=== PATIENT | male | born 1950 | race Caucasian/White ===

== ENCOUNTER 2021-02-14 09:50 | Inpatient (IN) | payer MEDICARE, BC ==
[~2021-02-14] VITALS: Ht 188 cm; Wt 86.0 kg
[~2021-02-14 09:50] MED LIST: MESA400C3 PO
[2021-02-14 10:42] LABS: BASOPHILS % (AUTO) 0.4 % (0-1); EOSINOPHILS # (AUTO) 0.2 X10'3 (0-0.9); EOSINOPHILS % (AUTO) 2.2 % (0-6); HEMOGLOBIN 17.1 g/dl (14.0-17.9); LYMPHOCYTES # (AUTO) 1.9 X10'3 (1.1-4.8); LYMPHOCYTES % (AUTO) 18.1 % (21-51); MEAN CORPUSCULAR HEMOGLOBIN 31.4 PG (27.0-31.0); MEAN CORPUSCULAR HGB CONC 33.5 g/dL (33.0-36.5); MEAN CORPUSCULAR VOLUME 93.5 FL (78-98); MEAN PLATELET VOLUME 7.9 FL (7.4-10.4); MONOCYTES # (AUTO) 1.2 X10'3 (0-0.9); MONOCYTES % (AUTO) 11.6 % (2-12); NEUTROPHILS # (AUTO) 7.1 X10'3 (1.8-7.7); NEUTROPHILS % (AUTO) 67.7 % (42-75); PLATELET COUNT 293 X10'3 (140-440); RED BLOOD COUNT 5.46 X10'6 (4.70-6.10); RED CELL DISTRIBUTION WIDTH 13.7 % (11.5-14.5); WHITE BLOOD COUNT 10.5 X10'3 (4.5-11.0)
[2021-02-14 10:57] LABS: ALANINE AMINOTRANSFERASE 27 U/L (12-78); ALBUMIN 3.9 G/DL (3.4-5.0); ALBUMIN/GLOBULIN RATIO 0.9 (1.1-1.5); ALKALINE PHOSPHATASE 93 IU/L (46-116); ANION GAP 7 (8-16); ASPARTATE AMINO TRANSFERASE 18 U/L (10-37); BILIRUBIN,TOTAL 1.1 MG/DL (0.1-1.0); BLOOD UREA NITROGEN 15 MG/DL (7-18); BUN/CREATININE RATIO 11.8 (5.4-32.0); CALCIUM 9.6 MG/DL (8.5-10.1); CHLORIDE 99 MMOL/L (99-107); CREATININE 1.27 MG/DL (0.60-1.10); GLUCOSE 114 MG/DL (70-104); LIPASE 104 U/L (73-393); POTASSIUM 4.3 MMOL/L (3.5-5.1); SODIUM 137 MMOL/L (135-145); TOTAL CARBON DIOXIDE 31.5 MMOL/L (24-32); TOTAL PROTEIN 8.3 G/DL (6.4-8.2); eGFR 56 ML/MIN
[2021-02-14] MEDS ORDERED: iohexol 300mg/ml 100ml inj. ONE (11:20)
[2021-02-14 11:56] LABS: CLARITY,URINE CLEAR (Clear); COLOR,URINE STRAW (Yellow); GLUCOSE, URINE NEGATIVE (Neg); KETONES,URINE NEGATIVE (Neg); LEUKOCYTE ESTERASE ,URINE NEGATIVE (Neg); NITRITES, URINE NEGATIVE (Neg); OCCULT BLOOD,URINE NEGATIVE (Neg); PROTEIN,URINE NEGATIVE (Neg); UROBILINOGEN,URINE 0.2 E.U/dL (0.2-1.0)
[2021-02-14 11:57] LABS: UA COLLECTION TYPE CLN CATCH MIDSTREAM
[2021-02-14] MEDS ORDERED: LEVO50TA PO (13:17)
[2021-02-14] MEDS ORDERED: ATOR20TA66 PO (13:17)
[2021-02-14] MEDS ORDERED: magnesium 4gm in 100ml NS 100 ML IV PRN (13:45)
[2021-02-14] MEDS ORDERED: PEG 3350/Na sulf,bicarb,Cl/KCl oral sol 4 liter bottle PO ONE (13:45)
[2021-02-14] MEDS ORDERED: magnesium 2GM in 50ml NS 50 ML IV PRN (13:45)
[2021-02-14] MEDS ORDERED: potassium Cl 40MEQ/1/2NS 520ml 520 ML IV PRN ×2 (13:45)
[2021-02-14] MEDS ORDERED: acetaminophen 325mg tablet PO PRN (13:45)
[2021-02-14] MEDS ORDERED: potassium Cl 20 mEq SR tablet PO PRN ×2 (13:45)
[2021-02-14] MEDS ORDERED: magnesium Cl slow-release 64mg tablet PO PRN (13:45)
[2021-02-14] MEDS ORDERED: magnesium hydroxide 30ml (MOM) UD suspension PO PRN (13:45)
[2021-02-14] MEDS ORDERED: diphenhydrAMINE 25mg capsule PO PRN (13:45)
[2021-02-14 14:13] LABS: HEMOGLOBIN A1C 5.6 % (4.5-6.2)
--- NOTE | 2021-02-14 14:45 | NUR ---
PT TO GO TO GI LAB TOMORROW AFTER 1200, NEEDS TO START PRE AND CLEARS TODAY, ONLY PREP AFTER MIDNIGHT.
[2021-02-14] MEDS: normal saline 1000ml 1,000 ML IV SCH (16:44)
[2021-02-14] MEDS: docusate sod 100mg capsule PO SCH (20:00)
[2021-02-14] MEDS: K and/or MAG REPLACEMENT MC SCH (20:00)
[2021-02-14] MEDS: temazepam 15mg capsule PO SCH (21:15)
--- NOTE | 2021-02-14 23:18 | NUR ---
Patient in room ED 15. I have received report from DINAH Tatum and had the opportunity to ask questions and assume patient care.
[2021-02-14 23:53] VITALS: BP 136/81
[2021-02-15] VITALS (9 sets, daily range): BP systolic 111–132; BP diastolic 50–89
[2021-02-15] MEDS: normal saline 1000ml 1,000 ML IV SCH ×3 (02:01→15:49)
--- NOTE | 2021-02-15 06:11 | NUR ---
Problems reprioritized. Patient report given, questions answered & plan of care reviewed with DINAH Gonzalez.
--- NOTE | 2021-02-15 06:13 | NUR ---
Patient in room ORTHO 4024. I have received report from DINAH Vences and had the opportunity to ask questions and assume patient care.
[2021-02-15 06:17] LABS: BASOPHILS % (AUTO) 0.5 % (0-1); EOSINOPHILS # (AUTO) 0.3 X10'3 (0-0.9); HEMATOCRIT 47.8 % (42.0-52.0); HEMOGLOBIN 16.1 g/dl (14.0-17.9); LYMPHOCYTES # (AUTO) 1.6 X10'3 (1.1-4.8); LYMPHOCYTES % (AUTO) 16.3 % (21-51); MEAN CORPUSCULAR HEMOGLOBIN 31.6 PG (27.0-31.0); MEAN CORPUSCULAR HGB CONC 33.7 g/dL (33.0-36.5); MEAN CORPUSCULAR VOLUME 93.6 FL (78-98); MEAN PLATELET VOLUME 8.1 FL (7.4-10.4); MONOCYTES # (AUTO) 1.3 X10'3 (0-0.9); NEUTROPHILS # (AUTO) 6.4 X10'3 (1.8-7.7); NEUTROPHILS % (AUTO) 66.2 % (42-75); PLATELET COUNT 265 X10'3 (140-440); RED CELL DISTRIBUTION WIDTH 13.6 % (11.5-14.5); WHITE BLOOD COUNT 9.6 X10'3 (4.5-11.0)
--- NOTE | 2021-02-15 06:42 | NUR ---
Problems reprioritized. Patient report given to DINAH Noguera questions answered & plan of care reviewed with .
[2021-02-15 06:48] LABS: ALANINE AMINOTRANSFERASE 23 U/L (12-78); ALBUMIN 3.6 G/DL (3.4-5.0); ALBUMIN/GLOBULIN RATIO 0.9 (1.1-1.5); ALKALINE PHOSPHATASE 93 IU/L (46-116); ANION GAP 10 (8-16); ASPARTATE AMINO TRANSFERASE 20 U/L (10-37); BILIRUBIN,TOTAL 1.1 MG/DL (0.1-1.0); BLOOD UREA NITROGEN 16 MG/DL (7-18); CALCIUM 8.6 MG/DL (8.5-10.1); CHLORIDE 104 MMOL/L (99-107); CHOL/HDL RATIO 1.7 (0.00-4.99); CHOLESTEROL 151 MG/DL (0-200); CREATININE 1.14 MG/DL (0.60-1.10); GLUCOSE 103 MG/DL (70-104); HDL CHOLESTEROL 89 MG/DL (35-60); LDL CHOLESTEROL 40 MG/DL (50-100); MAGNESIUM 1.8 MG/DL (1.5-2.4); PHOSPHORUS 3.2 MG/DL (2.3-4.5); POTASSIUM 4.1 MMOL/L (3.5-5.1); SODIUM 139 MMOL/L (135-145); TOTAL CARBON DIOXIDE 25.5 MMOL/L (24-32); TOTAL PROTEIN 7.4 G/DL (6.4-8.2); TRIGLYCERIDES 62 MG/DL (20-135); eGFR 64 ML/MIN
[2021-02-15] MEDS: K and/or MAG REPLACEMENT MC SCH ×2 (08:00→19:49)
[2021-02-15] MEDS: docusate sod 100mg capsule PO SCH ×2 (08:00→19:55)
[2021-02-15] MEDS: atorvastatin 20mg tablet PO SCH (08:26)
[2021-02-15] MEDS: levoTHYROXINE 25mcg tablet PO SCH (08:26)
[2021-02-15] MEDS ORDERED: MIDAZolam 1 MG/ML 5ML VIAL ONE (12:05)
[2021-02-15] MEDS ORDERED: fentaNYL/PF 50MCG/1 ML 2ML syringe ONE (12:05)
[2021-02-15] MEDS ORDERED: GADOTERATE MEGLUMINE 7.5 MMOL/15 ML VIAL IV ONE (13:39)
--- NOTE | 2021-02-15 14:40 | NUR ---
PAGER ID: [phone] MESSAGE: german russell [phone] re: Colby Culver [id number]. Pts colonoscopy and MRI results are in. May pt eat? Thank you.
--- NOTE | 2021-02-15 18:23 | NUR ---
Problems reprioritized. Patient report given, questions answered & plan of care reviewed with remington russell.
--- NOTE | 2021-02-15 18:38 | NUR ---
Patient in room ORTHO 4024. I have received report from DINAH Noguera and had the opportunity to ask questions and assume patient care.
[2021-02-15] MEDS: temazepam 15mg capsule PO SCH (21:23)
[2021-02-16] MEDS: normal saline 1000ml 1,000 ML IV SCH ×2 (02:02→15:56)
[2021-02-16] MEDS: mag hydrox/Alum hydrox/simeth 30ml oral suspension PO PRN ×2 (04:41→09:45)
[2021-02-16] MEDS: HYDROmorphone inj. 0.5 MG/0.5 ML DISP.SYRIN IV PRN ×4 (04:53→20:40)
[2021-02-16 05:53] LABS: BASOPHILS % (AUTO) 0.5 % (0-1); EOSINOPHILS # (AUTO) 0.2 X10'3 (0-0.9); EOSINOPHILS % (AUTO) 2.7 % (0-6); HEMATOCRIT 45.1 % (42.0-52.0); HEMOGLOBIN 15.2 g/dl (14.0-17.9); LYMPHOCYTES # (AUTO) 1.2 X10'3 (1.1-4.8); LYMPHOCYTES % (AUTO) 14.1 % (21-51); MEAN CORPUSCULAR HEMOGLOBIN 31.4 PG (27.0-31.0); MEAN CORPUSCULAR HGB CONC 33.8 g/dL (33.0-36.5); MEAN CORPUSCULAR VOLUME 92.8 FL (78-98); MEAN PLATELET VOLUME 8.3 FL (7.4-10.4); MONOCYTES # (AUTO) 1.2 X10'3 (0-0.9); MONOCYTES % (AUTO) 14.3 % (2-12); NEUTROPHILS % (AUTO) 68.4 % (42-75); PLATELET COUNT 263 X10'3 (140-440); RED BLOOD COUNT 4.86 X10'6 (4.70-6.10); RED CELL DISTRIBUTION WIDTH 13.4 % (11.5-14.5); WHITE BLOOD COUNT 8.7 X10'3 (4.5-11.0)
[2021-02-16 06:00] VITALS: BP 122/72
[2021-02-16 06:21] LABS: ALANINE AMINOTRANSFERASE 19 U/L (12-78); ALBUMIN 3.3 G/DL (3.4-5.0); ALBUMIN/GLOBULIN RATIO 0.9 (1.1-1.5); ALKALINE PHOSPHATASE 88 IU/L (46-116); ANION GAP 10 (8-16); ASPARTATE AMINO TRANSFERASE 19 U/L (10-37); BLOOD UREA NITROGEN 16 MG/DL (7-18); BUN/CREATININE RATIO 15.7 (5.4-32.0); CALCIUM 8.5 MG/DL (8.5-10.1); CHLORIDE 103 MMOL/L (99-107); CREATININE 1.02 MG/DL (0.60-1.10); GLUCOSE 110 MG/DL (70-104); MAGNESIUM 1.9 MG/DL (1.5-2.4); PHOSPHORUS 2.6 MG/DL (2.3-4.5); POTASSIUM 3.6 MMOL/L (3.5-5.1); SODIUM 138 MMOL/L (135-145); eGFR 72 ML/MIN
--- NOTE | 2021-02-16 06:45 | NUR ---
Problems reprioritized. Patient report given, questions answered & plan of care reviewed with DINAH Gutierrez.
[2021-02-16] MEDS: levoTHYROXINE 25mcg tablet PO SCH (07:59)
[2021-02-16] MEDS: atorvastatin 20mg tablet PO SCH (07:59)
[2021-02-16] MEDS: K and/or MAG REPLACEMENT MC SCH ×2 (08:00→20:00)
[2021-02-16] MEDS: docusate sod 100mg capsule PO SCH ×2 (08:00→20:38)
[2021-02-16] MEDS: ondansetron/PF 4mg/2ml inj IV PRN (09:53)
[2021-02-16 10:00] VITALS: BP 126/66
[2021-02-16] MEDS ORDERED: iohexol 300mg/ml 100ml inj. ONE (10:09)
[2021-02-16] MEDS: pantoprazole 40 MG vial IV SCH (13:16)
[2021-02-16 18:00] VITALS: BP 114/72
--- NOTE | 2021-02-16 18:30 | NUR ---
Patient in room ORTHO 4024. I have received report from Brenda NIX and had the opportunity to ask questions and assume patient care.
[2021-02-16] MEDS: heparin, porcine 5000 units/ml vial SQ SCH (20:00)
[2021-02-16] MEDS: temazepam 15mg capsule PO SCH (21:00)
--- NOTE | 2021-02-16 21:00 | NUR ---
I have not seen him void yet but he verbalized that he is peeing and I asked him to use the urinal for accurate measurement. Addendum: 02/17/21 at 0344 by Jaylin Salazar RN Amended: Links added.
[2021-02-16 22:00] VITALS: BP 111/66
[2021-02-17] MEDS: normal saline 1000ml 1,000 ML IV SCH ×3 (02:58→20:28)
[2021-02-17 06:13] VITALS: BP 123/62
--- NOTE | 2021-02-17 06:13 | NUR ---
Patient in room ORTHO 4024. I have received report from Jaylin NIX and had the opportunity to ask questions and assume patient care.
--- NOTE | 2021-02-17 06:15 | NUR ---
Problems reprioritized. Patient report given, questions answered & plan of care reviewed with Jeane NIX.
[2021-02-17 06:52] LABS: BASOPHILS % (AUTO) 0.5 % (0-1); EOSINOPHILS # (AUTO) 0.2 X10'3 (0-0.9); EOSINOPHILS % (AUTO) 3.9 % (0-6); HEMOGLOBIN 14.6 g/dl (14.0-17.9); LYMPHOCYTES % (AUTO) 19.2 % (21-51); MEAN CORPUSCULAR HEMOGLOBIN 31.5 PG (27.0-31.0); MEAN CORPUSCULAR HGB CONC 33.9 g/dL (33.0-36.5); MEAN CORPUSCULAR VOLUME 93.1 FL (78-98); MEAN PLATELET VOLUME 8.3 FL (7.4-10.4); MONOCYTES # (AUTO) 1.2 X10'3 (0-0.9); MONOCYTES % (AUTO) 23.6 % (2-12); NEUTROPHILS # (AUTO) 2.8 X10'3 (1.8-7.7); NEUTROPHILS % (AUTO) 52.8 % (42-75); PLATELET COUNT 246 X10'3 (140-440); RED BLOOD COUNT 4.62 X10'6 (4.70-6.10); RED CELL DISTRIBUTION WIDTH 13.4 % (11.5-14.5); WHITE BLOOD COUNT 5.3 X10'3 (4.5-11.0)
[2021-02-17 07:21] LABS: ALANINE AMINOTRANSFERASE 47 U/L (12-78); ALBUMIN/GLOBULIN RATIO 0.9 (1.1-1.5); ALKALINE PHOSPHATASE 85 IU/L (46-116); ANION GAP 8 (8-16); ASPARTATE AMINO TRANSFERASE 33 U/L (10-37); BILIRUBIN,TOTAL 1.1 MG/DL (0.1-1.0); BLOOD UREA NITROGEN 13 MG/DL (7-18); CALCIUM 7.8 MG/DL (8.5-10.1); CHLORIDE 104 MMOL/L (99-107); CREATININE 0.93 MG/DL (0.60-1.10); GLUCOSE 105 MG/DL (70-104); MAGNESIUM 2.1 MG/DL (1.5-2.4); PHOSPHORUS 2.6 MG/DL (2.3-4.5); POTASSIUM 3.8 MMOL/L (3.5-5.1); SODIUM 138 MMOL/L (135-145); TOTAL PROTEIN 6.5 G/DL (6.4-8.2); eGFR 81 ML/MIN
[2021-02-17 07:55] LABS: PLATELET ESTIMATE NORMAL; TOTAL CELLS COUNTED 100
[2021-02-17] MEDS: K and/or MAG REPLACEMENT MC SCH ×2 (08:00→20:00)
[2021-02-17] MEDS: heparin, porcine 5000 units/ml vial SQ SCH ×3 (08:00→20:00)
[2021-02-17] MEDS: docusate sod 100mg capsule PO SCH ×3 (08:00→20:26)
[2021-02-17] MEDS: pantoprazole 40 MG vial IV SCH (08:24)
[2021-02-17] MEDS: atorvastatin 20mg tablet PO SCH (08:24)
[2021-02-17] MEDS: levoTHYROXINE 25mcg tablet PO SCH (08:29)
[2021-02-17 10:00] VITALS: BP 119/73
--- NOTE | 2021-02-17 10:15 | NUR ---
Page Sent PAGER ID: [phone] MESSAGE: [phone] jamie Culver was wanting a smoothie. They are on clear liquids, can he advance as tolerated?
[2021-02-17] MEDS: HYDROmorphone inj. 0.5 MG/0.5 ML DISP.SYRIN IV PRN (13:57)
[2021-02-17 18:00] VITALS: BP 135/79
--- NOTE | 2021-02-17 19:08 | NUR ---
Problems reprioritized. Patient report given, questions answered & plan of care reviewed with Lisa NIX.
[2021-02-17] MEDS: temazepam 15mg capsule PO SCH (20:25)
[2021-02-17 22:00] VITALS: BP 126/78
[2021-02-18 06:00] VITALS: BP 118/68
--- NOTE | 2021-02-18 06:21 | NUR ---
Problems reprioritized. Patient report given, questions answered & plan of care reviewed with DINAH NICHOLSON.
--- NOTE | 2021-02-18 06:22 | NUR ---
Patient in room ORTHO 4024. I have received report from mendy NIX and had the opportunity to ask questions and assume patient care.
[2021-02-18 06:52] LABS: BASOPHILS % (AUTO) 0.6 % (0-1); EOSINOPHILS # (AUTO) 0.2 X10'3 (0-0.9); EOSINOPHILS % (AUTO) 3.2 % (0-6); HEMATOCRIT 44.9 % (42.0-52.0); HEMOGLOBIN 15.1 g/dl (14.0-17.9); LYMPHOCYTES # (AUTO) 1.5 X10'3 (1.1-4.8); LYMPHOCYTES % (AUTO) 23.5 % (21-51); MEAN CORPUSCULAR HEMOGLOBIN 31.1 PG (27.0-31.0); MEAN CORPUSCULAR HGB CONC 33.7 g/dL (33.0-36.5); MEAN CORPUSCULAR VOLUME 92.3 FL (78-98); MEAN PLATELET VOLUME 8.6 FL (7.4-10.4); MONOCYTES # (AUTO) 1.4 X10'3 (0-0.9); MONOCYTES % (AUTO) 22.2 % (2-12); NEUTROPHILS # (AUTO) 3.2 X10'3 (1.8-7.7); NEUTROPHILS % (AUTO) 50.5 % (42-75); PLATELET COUNT 260 X10'3 (140-440); RED BLOOD COUNT 4.87 X10'6 (4.70-6.10); RED CELL DISTRIBUTION WIDTH 13.3 % (11.5-14.5); WHITE BLOOD COUNT 6.3 X10'3 (4.5-11.0)
[2021-02-18 07:06] LABS: ALANINE AMINOTRANSFERASE 40 U/L (12-78); ALBUMIN 3.2 G/DL (3.4-5.0); ALBUMIN/GLOBULIN RATIO 0.9 (1.1-1.5); ALKALINE PHOSPHATASE 85 IU/L (46-116); ANION GAP 10 (8-16); ASPARTATE AMINO TRANSFERASE 20 U/L (10-37); BLOOD UREA NITROGEN 9 MG/DL (7-18); BUN/CREATININE RATIO 9.5 (5.4-32.0); CALCIUM 8.1 MG/DL (8.5-10.1); CHLORIDE 104 MMOL/L (99-107); CREATININE 0.95 MG/DL (0.60-1.10); GLUCOSE 98 MG/DL (70-104); MAGNESIUM 2.1 MG/DL (1.5-2.4); PHOSPHORUS 2.2 MG/DL (2.3-4.5); POTASSIUM 3.7 MMOL/L (3.5-5.1); SODIUM 137 MMOL/L (135-145); TOTAL PROTEIN 6.8 G/DL (6.4-8.2); eGFR 79 ML/MIN
[2021-02-18] MEDS: normal saline 1000ml 1,000 ML IV SCH ×3 (07:45→21:04)
[2021-02-18] MEDS: K and/or MAG REPLACEMENT MC SCH ×2 (08:00→20:27)
[2021-02-18] MEDS: heparin, porcine 5000 units/ml vial SQ SCH ×2 (08:00→18:17)
[2021-02-18] MEDS: docusate sod 100mg capsule PO SCH ×2 (08:00→20:00)
--- NOTE | 2021-02-18 08:02 | NUR ---
called angio, pt is ok to have morning medications. still hold heparin and keep npo. procedure will probably be after 1 pm.
[2021-02-18] MEDS: pantoprazole 40mg Tablet.DR PO SCH (08:13)
[2021-02-18] MEDS: atorvastatin 20mg tablet PO SCH (08:14)
[2021-02-18] MEDS: levoTHYROXINE 25mcg tablet PO SCH (08:14)
[2021-02-18] MEDS: temazepam 15mg capsule PO SCH (21:03)
[2021-02-18 22:00] VITALS: BP 126/67
[2021-02-19] VITALS (19 sets, daily range): BP systolic 117–129; BP diastolic 58–77
--- NOTE | 2021-02-19 00:19 | NUR ---
Problems reprioritized. Patient report given, questions answered & plan of care reviewed with YSABEL GRADY RN.
--- NOTE | 2021-02-19 00:25 | NUR ---
Patient in room ORTHO 4024. I have received report from JUAN MIGUEL NIX and had the opportunity to ask questions and assume patient care.
[2021-02-19 06:02] LABS: BASOPHILS % (AUTO) 0.5 % (0-1); EOSINOPHILS # (AUTO) 0.3 X10'3 (0-0.9); HEMATOCRIT 42.8 % (42.0-52.0); HEMOGLOBIN 14.2 g/dl (14.0-17.9); LYMPHOCYTES # (AUTO) 1.3 X10'3 (1.1-4.8); LYMPHOCYTES % (AUTO) 19.9 % (21-51); MEAN CORPUSCULAR HEMOGLOBIN 31.2 PG (27.0-31.0); MEAN CORPUSCULAR HGB CONC 33.2 g/dL (33.0-36.5); MEAN CORPUSCULAR VOLUME 94.1 FL (78-98); MEAN PLATELET VOLUME 8.3 FL (7.4-10.4); MONOCYTES # (AUTO) 1.2 X10'3 (0-0.9); NEUTROPHILS # (AUTO) 3.8 X10'3 (1.8-7.7); NEUTROPHILS % (AUTO) 57.6 % (42-75); PLATELET COUNT 256 X10'3 (140-440); RED BLOOD COUNT 4.55 X10'6 (4.70-6.10); RED CELL DISTRIBUTION WIDTH 13.2 % (11.5-14.5); WHITE BLOOD COUNT 6.5 X10'3 (4.5-11.0)
[2021-02-19 06:23] LABS: ALANINE AMINOTRANSFERASE 33 U/L (12-78); ALBUMIN 2.9 G/DL (3.4-5.0); ALBUMIN/GLOBULIN RATIO 0.9 (1.1-1.5); ALKALINE PHOSPHATASE 73 IU/L (46-116); ANION GAP 11 (8-16); ASPARTATE AMINO TRANSFERASE 19 U/L (10-37); BILIRUBIN,TOTAL 0.8 MG/DL (0.1-1.0); BLOOD UREA NITROGEN 8 MG/DL (7-18); BUN/CREATININE RATIO 8.2 (5.4-32.0); CALCIUM 7.9 MG/DL (8.5-10.1); CHLORIDE 109 MMOL/L (99-107); CREATININE 0.97 MG/DL (0.60-1.10); GLUCOSE 81 MG/DL (70-104); MAGNESIUM 1.8 MG/DL (1.5-2.4); PHOSPHORUS 2.6 MG/DL (2.3-4.5); POTASSIUM 3.5 MMOL/L (3.5-5.1); SODIUM 142 MMOL/L (135-145); TOTAL CARBON DIOXIDE 21.6 MMOL/L (24-32); TOTAL PROTEIN 6.2 G/DL (6.4-8.2); eGFR 77 ML/MIN
[2021-02-19] MEDS: normal saline 1000ml 1,000 ML IV SCH ×2 (06:23→22:46)
--- NOTE | 2021-02-19 06:30 | NUR ---
Problems reprioritized. Patient report given, questions answered & plan of care reviewed with RENETTA NIX.
--- NOTE | 2021-02-19 06:30 | NUR ---
Patient in room ORTHO 4024. I have received report from mark flores rn and had the opportunity to ask questions and assume patient care.
[2021-02-19] MEDS: heparin, porcine 5000 units/ml vial SQ SCH (06:57)
[2021-02-19] MEDS: K and/or MAG REPLACEMENT MC SCH ×2 (07:18→20:00)
[2021-02-19] MEDS: docusate sod 100mg capsule PO SCH ×2 (07:19→20:00)
[2021-02-19 07:58] LABS: PARTIAL THROMBOPLASTIN TIME 32 SECONDS (22-32)
--- NOTE | 2021-02-19 08:34 | NUR ---
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 Pt s/p colonoscopy and a pretty significant mass in the ileocecal junction was seen per MD note. Pt pending to go to OR today. Pt currently on a clear liquid diet and on a liquid diet throughout most of LOS, documented with average 50-75% PO intake. Unable to meet estimated nutrient needs on current diet order. [facility] 02/17, receiving routine bowel care with PRN bowel care available. Will continue to follow closely and make recommendations as appropriate. Recommendations: 1) Advance to low residue diet as medically indicated 2) Monitor need for ONS post-op 3) Bowel care per rx 4) Weekly scaled weights Addendum: 02/19/21 at [address] Amended: Links added.
[2021-02-19] MEDS: atorvastatin 20mg tablet PO SCH (08:42)
[2021-02-19] MEDS: pantoprazole 40mg Tablet.DR PO SCH (08:42)
[2021-02-19] MEDS: levoTHYROXINE 25mcg tablet PO SCH (08:43)
--- NOTE | 2021-02-19 11:08 | NUR ---
PAGED DR MELTON RE: PAGER ID: [phone] MESSAGE: RUDDY KO. PT REFUSING CHEST CT AT THIS TIME. O/N RENETTA [id number]
[2021-02-19] MEDS ORDERED: INDOCYANINE GREEN 25 MG/10 ML VIAL IV ONE ×2 (12:55→16:07)
[2021-02-19] MEDS ORDERED: BUPIVAcaine 0.5% inj/PF 30 ML ONE (13:38)
[2021-02-19] MEDS ORDERED: LIDOcaine 1% 30ml preserv. free vial ONE (13:38)
[2021-02-19] MEDS ORDERED: rocuronium 10mg/ml inj IV ONE ×2 (13:49→14:09)
[2021-02-19] MEDS ORDERED: sevoflurane 250ml liquid IH ONE (13:49)
[2021-02-19] MEDS ORDERED: midazolam 1 mg/ML 2ml injection ONE (14:00)
[2021-02-19] MEDS ORDERED: fentaNYL /PF 50mcg/ml 5ml ampule ONE (14:01)
[2021-02-19] MEDS ORDERED: propofol inj 20 ML IV ONE (14:02)
[2021-02-19] MEDS ORDERED: dexamethasone sod phosphate 4mg/ml inj. ONE (14:12)
[2021-02-19] MEDS ORDERED: morphine 4 MG/ML inj SYRINge IV PRN (14:45)
[2021-02-19] MEDS ORDERED: proCHLORperazine 10 MG/2 ml inj IV PRN (14:45)
[2021-02-19] MEDS ORDERED: morphine 2 MG/ML inj. syringe IV PRN (14:45)
[2021-02-19] MEDS ORDERED: meperidine/PF 25mg/ml syringe IV PRN ×2 (14:45)
[2021-02-19] MEDS ORDERED: ondansetron/PF 4mg/2ml inj IV PRN (14:45)
[2021-02-19] MEDS ORDERED: ringers solution, lacted 1,000 ML IV SCH (14:45)
[2021-02-19] MEDS ORDERED: ceFOXitin 1000 MG inj ONE ×2 (15:01)
[2021-02-19] MEDS ORDERED: ePHEDrine 50MG/ML INJ. ONE (15:02)
[2021-02-19] MEDS ORDERED: glycopyrrolate 0.2mg/ml inj ONE (17:23)
[2021-02-19] MEDS ORDERED: neostigmine methylsulfate 1 MG/ML 10ml vial ONE (17:23)
[2021-02-19] MEDS ORDERED: ondansetron/PF 4mg/2ml inj ONE (17:28)
--- NOTE | 2021-02-19 17:36 | NUR ---
ASSUME CARE PT AROUSABLE ENC TCDB FM IN PLACE NO DISTRESS. ABD LAP SITES TO ABD X4 CDI. IV TO LEFT ARM 20G INTACT IVF INFUSING WITHOUT DIFF. JONES CATH SECURED WITH STAT LOCK TO GRAVITY DRAINING CLEAR YELLOW URINE. Addendum: 02/19/21 at 1809 by Ashly Chan RN Amended: Links added.
[2021-02-19] MEDS: meperidine/PF 25mg/ml syringe IV PRN ×2 (17:55→18:17)
[2021-02-19] MEDS: ondansetron/PF 4mg/2ml inj IV PRN (17:56)
[2021-02-19] MEDS ORDERED: HYDROcodone/acetaminophen 5mg/325mg tablet PO PRN (18:10)
--- NOTE | 2021-02-19 18:13 | NUR ---
Problems reprioritized. Patient report given, questions answered & plan of care reviewed with YSABEL GRADY RN.
--- NOTE | 2021-02-19 18:30 | NUR ---
I have received report from RENETTA and had the opportunity to ask questions. PATIENT IN OPERATING ROOM AT THIS TIME FOR SURGERY.
--- NOTE | 2021-02-19 18:51 | NUR ---
PT AWAKE VSS NO DISTRESS MEETS CRITERIA TO DC TO ROOM REPORT CALLED TO YSABEL NIX Addendum: 02/19/21 at 1852 by Ashly Chan RN Amended: Links added.
--- NOTE | 2021-02-19 19:15 | NUR ---
PATIENT BACK TO ROOM 4024B FROM RECOVERY ROOM AFTER ROBOTIC ASSISTED LAPAROSCOPIC RIGHT HEMICOLECTOMY BY DR. ESPINOZA. PLACED COMFORTABLE IN BED. VITAL SIGNS MONITORED.
[2021-02-19] MEDS: Potassium Cl inj 20 MEQ in ringers solution, lacted 1,000 ML IV SCH ×2 (19:30→23:31)
[2021-02-19] MEDS: acetaminophen 325mg tablet PO SCH (20:00)
[2021-02-19] MEDS: temazepam 15mg capsule PO SCH (21:00)
[2021-02-19] MEDS: HYDROmorphone 1 mg/ml syringe IV PRN (21:35)
--- NOTE | 2021-02-19 22:30 | NUR ---
Patient in room TRACY 352. I have received report from YSABEL GRADY and had the opportunity to ask questions and assume patient care. Addendum: 02/20/21 at 0045 by Hernandez Cabrera RN Amended: Links added.
--- NOTE | 2021-02-19 23:00 | NUR ---
PATIENT TRANSFERRED TO SURGICAL FLOOR ROOM 352 IN A BED WITH 2 STAFF. BELONGINGS TRANSFERRED WITH PATIENT.
--- NOTE | 2021-02-19 23:00 | NUR ---
NO CHANGE TO PREVIOUS RN'S ASSESMENT WHO RECEIVED THIS PATIENT FRESH POST OP.
[2021-02-19] MEDS: ceFOXitin inj 1,000 MG in normal saline 100ml IV soln 100 ML IV SCH (23:30)
[2021-02-19] MEDS: ketorolac tromethamine 15mg/ml inj. IV SCH (23:31)
[2021-02-20] MEDS: acetaminophen 325mg tablet PO SCH ×4 (01:44→20:51)
[2021-02-20] MEDS: HYDROmorphone 1 mg/ml syringe IV PRN ×3 (01:45→13:32)
[2021-02-20 04:00] VITALS: BP 111/63
--- NOTE | 2021-02-20 06:30 | NUR ---
Patient in room TRACY 352. I have received report from Praneeth NIX and had the opportunity to ask questions and assume patient care.
--- NOTE | 2021-02-20 06:30 | NUR ---
Problems reprioritized. Patient report given, questions answered & plan of care reviewed with ROBERTO. Addendum: 02/20/21 at 0651 by Hernandez Cabrera RN Amended: Links added.
[2021-02-20 07:00] VITALS: BP 117/62
[2021-02-20] MEDS: K and/or MAG REPLACEMENT MC SCH ×2 (08:00→20:00)
[2021-02-20] MEDS: Potassium Cl inj 20 MEQ in ringers solution, lacted 1,000 ML IV SCH ×2 (08:07→16:50)
[2021-02-20] MEDS: levoTHYROXINE 25mcg tablet PO SCH (08:08)
[2021-02-20] MEDS: pantoprazole 40mg Tablet.DR PO SCH (08:10)
[2021-02-20] MEDS: enoxaparin 40mg/0.4ml syringe SQ SCH (08:11)
[2021-02-20] MEDS: ketorolac tromethamine 15mg/ml inj. IV SCH ×2 (08:12→16:45)
[2021-02-20] MEDS: atorvastatin 20mg tablet PO SCH (08:13)
[2021-02-20] MEDS: ceFOXitin inj 1,000 MG in normal saline 100ml IV soln 100 ML IV SCH (09:35)
[2021-02-20] MEDS: docusate sod 100mg capsule PO SCH ×2 (09:41→20:51)
[2021-02-20 12:00] VITALS: BP 150/73
--- NOTE | 2021-02-20 18:55 | NUR ---
Problems reprioritized. Patient report given, questions answered & plan of care reviewed with Ashley NIX.
--- NOTE | 2021-02-20 19:14 | NUR ---
Patient in room TRACY 352. I have received report from Snow NIX and had the opportunity to ask questions and assume patient care.
[2021-02-20 20:00] VITALS: BP 109/58
[2021-02-20] MEDS: temazepam 15mg capsule PO SCH (20:51)
[2021-02-21] VITALS: BP 115/64
[2021-02-21] MEDS: Potassium Cl inj 20 MEQ in ringers solution, lacted 1,000 ML IV SCH ×3 (00:22→17:42)
[2021-02-21] MEDS: ketorolac tromethamine 15mg/ml inj. IV SCH ×3 (00:22→16:17)
[2021-02-21] MEDS: acetaminophen 325mg tablet PO SCH ×4 (02:00→20:26)
--- NOTE | 2021-02-21 06:19 | NUR ---
Problems reprioritized. Patient report given, questions answered & plan of care reviewed with Snow NIX.
--- NOTE | 2021-02-21 06:20 | NUR ---
Patient in room TRACY 352. I have received report from Ashley NIX and had the opportunity to ask questions and assume patient care.
[2021-02-21 07:00] VITALS: BP 141/73
[2021-02-21] MEDS: levoTHYROXINE 25mcg tablet PO SCH (07:56)
[2021-02-21] MEDS: K and/or MAG REPLACEMENT MC SCH ×2 (08:00→20:00)
--- NOTE | 2021-02-21 08:00 | NUR ---
Per MD order F/C indwelling SKIP day 2 will be removed later this a.m. F/C patent, secure, draining per gravity. Cath care/pericare provided. Will continue to monitor.
[2021-02-21] MEDS: enoxaparin 40mg/0.4ml syringe SQ SCH (08:41)
[2021-02-21] MEDS: pantoprazole 40mg Tablet.DR PO SCH (08:42)
[2021-02-21] MEDS: docusate sod 100mg capsule PO SCH ×2 (08:43→20:23)
[2021-02-21] MEDS: atorvastatin 20mg tablet PO SCH (08:43)
[2021-02-21 08:50] LABS: BASOPHILS % (AUTO) 0.2 % (0-1); EOSINOPHILS # (AUTO) 0.1 X10'3 (0-0.9); EOSINOPHILS % (AUTO) 0.4 % (0-6); HEMATOCRIT 44.3 % (42.0-52.0); LYMPHOCYTES % (AUTO) 7.4 % (21-51); MEAN CORPUSCULAR HEMOGLOBIN 31.3 PG (27.0-31.0); MEAN CORPUSCULAR HGB CONC 33.9 g/dL (33.0-36.5); MEAN CORPUSCULAR VOLUME 92.4 FL (78-98); MEAN PLATELET VOLUME 7.8 FL (7.4-10.4); MONOCYTES # (AUTO) 1.6 X10'3 (0-0.9); MONOCYTES % (AUTO) 12.3 % (2-12); NEUTROPHILS # (AUTO) 10.4 X10'3 (1.8-7.7); NEUTROPHILS % (AUTO) 79.7 % (42-75); PLATELET COUNT 309 X10'3 (140-440); RED BLOOD COUNT 4.79 X10'6 (4.70-6.10); RED CELL DISTRIBUTION WIDTH 13.3 % (11.5-14.5)
[2021-02-21 09:02] LABS: ALBUMIN 2.9 G/DL (3.4-5.0); ANION GAP 13 (8-16); BLOOD UREA NITROGEN 7 MG/DL (7-18); BUN/CREATININE RATIO 6.8 (5.4-32.0); CALCIUM 8.2 MG/DL (8.5-10.1); CHLORIDE 101 MMOL/L (99-107); CREATININE 1.03 MG/DL (0.60-1.10); GLUCOSE 131 MG/DL (70-104); POTASSIUM 3.6 MMOL/L (3.5-5.1); SODIUM 135 MMOL/L (135-145); TOTAL CARBON DIOXIDE 21.4 MMOL/L (24-32); eGFR 72 ML/MIN
--- NOTE | 2021-02-21 10:15 | NUR ---
FC DC'd per SCIP order. 475cc's clear yellow urine drained, pt tolerated well. Education provided regarding post FC removal, urinal provided. Pt stated understanding and willingness to comply with instructions. Will continue to monitor.
[2021-02-21 11:00] VITALS: BP 124/72
--- NOTE | 2021-02-21 14:25 | NUR ---
Phone call to Dr Narvaez report given re: pt's abdomen has become distended, firm, more so on left than right abd, left lower abd appears pinkish, pain 5/10 with palpation, pt states he has had 3 small liquid bowel movements this shift, but not passing gas; WBCs 13.0 per a.m. labs. No new orders. certified orthotist practice manager notified and in to assess pt as well. Will continue to monitor. Addendum: 02/21/21 at 1449 by Lotus Alexis RN PAGER ID: [phone] MESSAGE: re: Colby Culver [id number] Please call re patient status. . Thank you, Snow [phone] Spoke [address] Palomino, informed of report above given to Dr Narvaez. No new orders. Will continue to monitor. Addendum: 02/21/21 at 2009 by Lotus Alexis RN Pt states his abdomen "suddenly became distended and firm over the last hour or so".1430 Vital signs BP-142/82, HR-72, RR-20
[2021-02-21] MEDS: HYDROmorphone inj. 0.5 MG/0.5 ML DISP.SYRIN IV PRN (14:55)
--- NOTE | 2021-02-21 17:24 | NUR ---
PAGER ID: [phone] MESSAGE: Colby RoseA Dr Narvaez at bedside-ordered pt NPO and NGT, states possible small bleed in pt abd. Phoned [facility]-report available maybe tomorrow or Thursday. Snow [phone]
--- NOTE | 2021-02-21 18:00 | NUR ---
Per MD orders: after pt instruction given and pt verbalizing understanding, placed NGT 16 Fr per pt's Left Nares; Pt tolerated well with small amt of bleeding per Left nares and 350cc greenish/yellow emesis; placement verified via auscultation, then NGT placed to low continuous suction. Will continue to monitor.
--- NOTE | 2021-02-21 18:41 | NUR ---
Problems reprioritized. Patient report given, questions answered & plan of care reviewed with Duke NIX.
--- NOTE | 2021-02-21 19:05 | NUR ---
Patient in room TRACY 352. I have received report from Snow NIX and had the opportunity to ask questions and assume patient care.
[2021-02-21 19:25] VITALS: BP 131/85
[2021-02-21] MEDS: temazepam 15mg capsule PO SCH (20:26)
[2021-02-22] VITALS (7 sets, daily range): BP systolic 18–155; BP diastolic 71–82
[2021-02-22] MEDS: ketorolac tromethamine 15mg/ml inj. IV SCH ×3 (00:04→17:07)
[2021-02-22] MEDS: acetaminophen 325mg tablet PO SCH ×4 (02:00→20:04)
[2021-02-22] MEDS: Potassium Cl inj 20 MEQ in ringers solution, lacted 1,000 ML IV SCH ×3 (02:58→20:05)
[2021-02-22 06:35] LABS: BASOPHILS % (AUTO) 0.2 % (0-1); EOSINOPHILS # (AUTO) 0.2 X10'3 (0-0.9); EOSINOPHILS % (AUTO) 1.5 % (0-6); HEMATOCRIT 42.7 % (42.0-52.0); HEMOGLOBIN 14.3 g/dl (14.0-17.9); LYMPHOCYTES # (AUTO) 0.9 X10'3 (1.1-4.8); LYMPHOCYTES % (AUTO) 8.6 % (21-51); MEAN CORPUSCULAR HGB CONC 33.5 g/dL (33.0-36.5); MEAN CORPUSCULAR VOLUME 92.5 FL (78-98); MONOCYTES # (AUTO) 1.5 X10'3 (0-0.9); MONOCYTES % (AUTO) 15.2 % (2-12); NEUTROPHILS # (AUTO) 7.4 X10'3 (1.8-7.7); NEUTROPHILS % (AUTO) 74.5 % (42-75); PLATELET COUNT 328 X10'3 (140-440); RED BLOOD COUNT 4.62 X10'6 (4.70-6.10); RED CELL DISTRIBUTION WIDTH 13.4 % (11.5-14.5); WHITE BLOOD COUNT 9.9 X10'3 (4.5-11.0)
[2021-02-22 07:07] LABS: PLATELET ESTIMATE NORMAL; TOTAL CELLS COUNTED 100
[2021-02-22 07:08] LABS: BURR CELLS 2+
--- NOTE | 2021-02-22 07:08 | NUR ---
Problems reprioritized. Patient report given, questions answered & plan of care reviewed with Selina NIX.
[2021-02-22 07:15] LABS: ALANINE AMINOTRANSFERASE 39 U/L (12-78); ALBUMIN 2.4 G/DL (3.4-5.0); ALBUMIN/GLOBULIN RATIO 0.6 (1.1-1.5); ALKALINE PHOSPHATASE 92 IU/L (46-116); ANION GAP 11 (8-16); ASPARTATE AMINO TRANSFERASE 29 U/L (10-37); BILIRUBIN,TOTAL 0.8 MG/DL (0.1-1.0); BLOOD UREA NITROGEN 8 MG/DL (7-18); BUN/CREATININE RATIO 8.4 (5.4-32.0); CALCIUM 8.1 MG/DL (8.5-10.1); CHLORIDE 103 MMOL/L (99-107); CREATININE 0.95 MG/DL (0.60-1.10); GLUCOSE 114 MG/DL (70-104); POTASSIUM 3.8 MMOL/L (3.5-5.1); SODIUM 139 MMOL/L (135-145); TOTAL CARBON DIOXIDE 24.8 MMOL/L (24-32); TOTAL PROTEIN 6.2 G/DL (6.4-8.2); eGFR 79 ML/MIN
[2021-02-22] MEDS: K and/or MAG REPLACEMENT MC SCH ×2 (07:32→20:00)
[2021-02-22] MEDS: docusate sod 100mg capsule PO SCH ×2 (07:38→20:03)
[2021-02-22] MEDS: pantoprazole 40mg Tablet.DR PO SCH (07:41)
[2021-02-22] MEDS: levoTHYROXINE 25mcg tablet PO SCH (07:41)
[2021-02-22] MEDS: atorvastatin 20mg tablet PO SCH (07:42)
[2021-02-22] MEDS: enoxaparin 40mg/0.4ml syringe SQ SCH (07:45)
--- NOTE | 2021-02-22 12:55 | NUR ---
DC NG tube per DR villavicencio if patient is passing gas, keep patient on sips and chips for 24hrs and reevaluate him tomorrow for clear liquids. Per Dr Villavicencio the KUB done were expected findings and nothing to be worried about for now.
--- NOTE | 2021-02-22 16:21 | NUR ---
Reassessment: Pt s/p laparoscopic right hemicolectomy for obstructing neoplasm per MD note. Initially advanced to regular diet from clear liquids post-op 02/15 however returned to clears following one meal. PO ~50% clear liquids fluctuating intake though currently NPO since last night for increased abdomen distention w/ N/V and abdominal pain; NG placed to suction -1250ml output per EMR. Pt had multiple watery stools today per MD note w/ first significant BM yesterday following OR 5 days prior and NG now removed. Day 8 poor nutrition status given prolonged restrictive clear liquids and NPO status this admit. DALTON bains MD regarding PPN if agreeable given prolonged poor nutrition status now w/ gut function returning, however, remaining NPO. DALTON d/w RN who reports PPN unlikely at this time since pt much better today w/ no GI symptoms and to advance to clear liquids tomorrow if still improving per surgeon. PPN recs below in case pt to remain NPO. Will monitor for diet advancement, PO tolerance, and nutrition support needs post-op. Recommendations: 1) Advance to low residue diet as medically indicated 2) IF to remain NPO/on restrictive clear liquids; consider PPN given 8 days poor nutrition status 3) IF PPN; 2:1 Clinimix E 4.25/10 at 100ml/hr goal w/ separate 250ml 20% intralipids to run 12 hours each day at 20.83ml/hr. In total; to provide 2400ml volume, 102g AA, 240g DEX (1.94mg/kg/min), and 1724 total kcals. 4) routine bowel care 5) Weekly scaled weights Addendum: 02/22/21 at [address] Amended: Links added.
--- NOTE | 2021-02-22 18:41 | NUR ---
Patient in room [facility]AC[facility] 352. I have received report from Selina NIX and had the opportunity to ask questions and assume patient care.
--- NOTE | 2021-02-22 19:29 | NUR ---
Patient given back to Duke NIX. All questions answered. No current needs from patient. Pt alert, oriented and appears stable at this time.
[2021-02-22] MEDS: temazepam 15mg capsule PO SCH (20:03)
[2021-02-23 00:09] VITALS: BP 125/69
[2021-02-23] MEDS: ketorolac tromethamine 15mg/ml inj. IV SCH ×2 (00:45→07:58)
--- NOTE | 2021-02-23 01:15 | NUR ---
Post Op Vital signs initiated and charted on wrong patient, notified nursing program director of discrepancy and they then entered vitals on the correct patient. Addendum: 02/23/21 at 0117 by Duke Crockett RN Amended: Links added.
[2021-02-23] MEDS: acetaminophen 325mg tablet PO SCH ×4 (02:00→20:58)
[2021-02-23] MEDS: Potassium Cl inj 20 MEQ in ringers solution, lacted 1,000 ML IV SCH (05:03)
[2021-02-23 06:19] LABS: BASOPHILS % (AUTO) 0.4 % (0-1); EOSINOPHILS % (AUTO) 8.7 % (0-6); HEMATOCRIT 39.9 % (42.0-52.0); HEMOGLOBIN 13.8 g/dl (14.0-17.9); LYMPHOCYTES # (AUTO) 1.1 X10'3 (1.1-4.8); LYMPHOCYTES % (AUTO) 10.4 % (21-51); MEAN CORPUSCULAR HEMOGLOBIN 31.6 PG (27.0-31.0); MEAN CORPUSCULAR HGB CONC 34.5 g/dL (33.0-36.5); MEAN CORPUSCULAR VOLUME 91.7 FL (78-98); MONOCYTES # (AUTO) 1.4 X10'3 (0-0.9); MONOCYTES % (AUTO) 12.7 % (2-12); NEUTROPHILS # (AUTO) 7.4 X10'3 (1.8-7.7); NEUTROPHILS % (AUTO) 67.8 % (42-75); PLATELET COUNT 324 X10'3 (140-440); RED BLOOD COUNT 4.35 X10'6 (4.70-6.10); RED CELL DISTRIBUTION WIDTH 13.5 % (11.5-14.5)
[2021-02-23 06:22] LABS: ALANINE AMINOTRANSFERASE 34 U/L (12-78); ALBUMIN 2.2 G/DL (3.4-5.0); ALBUMIN/GLOBULIN RATIO 0.6 (1.1-1.5); ALKALINE PHOSPHATASE 110 IU/L (46-116); ANION GAP 9 (8-16); ASPARTATE AMINO TRANSFERASE 25 U/L (10-37); BILIRUBIN,TOTAL 0.8 MG/DL (0.1-1.0); BLOOD UREA NITROGEN 10 MG/DL (7-18); BUN/CREATININE RATIO 10.4 (5.4-32.0); CHLORIDE 106 MMOL/L (99-107); CREATININE 0.96 MG/DL (0.60-1.10); GLUCOSE 95 MG/DL (70-104); POTASSIUM 3.7 MMOL/L (3.5-5.1); SODIUM 140 MMOL/L (135-145); TOTAL CARBON DIOXIDE 24.6 MMOL/L (24-32); TOTAL PROTEIN 5.7 G/DL (6.4-8.2); eGFR 78 ML/MIN
[2021-02-23 07:00] VITALS: BP 113/65
--- NOTE | 2021-02-23 07:10 | NUR ---
Problems reprioritized. Patient report given, questions answered & plan of care reviewed with Fadumo NIX.
--- NOTE | 2021-02-23 07:35 | NUR ---
Patient in room [facility]AC[facility] 352. I have received report from Duke NIX and had the opportunity to ask questions and assume patient care.
[2021-02-23] MEDS: levoTHYROXINE 25mcg tablet PO SCH (07:57)
[2021-02-23] MEDS: pantoprazole 40mg Tablet.DR PO SCH (07:57)
[2021-02-23] MEDS: atorvastatin 20mg tablet PO SCH (07:57)
[2021-02-23] MEDS: docusate sod 100mg capsule PO SCH ×2 (07:58→20:57)
[2021-02-23] MEDS: enoxaparin 40mg/0.4ml syringe SQ SCH (07:58)
[2021-02-23] MEDS: K and/or MAG REPLACEMENT MC SCH ×2 (08:00→20:00)
[2021-02-23 12:00] VITALS: BP 114/62
[2021-02-23 18:25] VITALS: BP 95/66
--- NOTE | 2021-02-23 18:33 | NUR ---
Problems reprioritized. Patient report given, questions answered & plan of care reviewed with Duke NIX.
--- NOTE | 2021-02-23 18:39 | NUR ---
Patient in room TRAC[facility] 352. I have received report from Fadumo NIX and had the opportunity to ask questions and assume patient care.
[2021-02-23] MEDS: temazepam 15mg capsule PO SCH (20:57)
[2021-02-24 00:07] VITALS: BP 122/61
[2021-02-24] MEDS: acetaminophen 325mg tablet PO SCH ×4 (02:00→20:20)
[2021-02-24 06:57] LABS: BASOPHILS % (AUTO) 0.3 % (0-1); EOSINOPHILS # (AUTO) 0.9 X10'3 (0-0.9); EOSINOPHILS % (AUTO) 8.2 % (0-6); HEMATOCRIT 38.5 % (42.0-52.0); HEMOGLOBIN 13.1 g/dl (14.0-17.9); LYMPHOCYTES # (AUTO) 1.1 X10'3 (1.1-4.8); LYMPHOCYTES % (AUTO) 9.9 % (21-51); MEAN CORPUSCULAR HEMOGLOBIN 31.2 PG (27.0-31.0); MEAN CORPUSCULAR HGB CONC 34.2 g/dL (33.0-36.5); MEAN CORPUSCULAR VOLUME 91.3 FL (78-98); MEAN PLATELET VOLUME 7.9 FL (7.4-10.4); MONOCYTES # (AUTO) 1.3 X10'3 (0-0.9); MONOCYTES % (AUTO) 11.7 % (2-12); NEUTROPHILS % (AUTO) 69.9 % (42-75); PLATELET COUNT 361 X10'3 (140-440); RED BLOOD COUNT 4.22 X10'6 (4.70-6.10); RED CELL DISTRIBUTION WIDTH 13.7 % (11.5-14.5); WHITE BLOOD COUNT 11.5 X10'3 (4.5-11.0)
[2021-02-24 07:00] VITALS: BP 137/71
[2021-02-24 07:03] LABS: ALANINE AMINOTRANSFERASE 34 U/L (12-78); ALBUMIN 2.3 G/DL (3.4-5.0); ALBUMIN/GLOBULIN RATIO 0.7 (1.1-1.5); ALKALINE PHOSPHATASE 136 IU/L (46-116); ANION GAP 11 (8-16); ASPARTATE AMINO TRANSFERASE 29 U/L (10-37); BILIRUBIN,TOTAL 0.7 MG/DL (0.1-1.0); BLOOD UREA NITROGEN 7 MG/DL (7-18); CHLORIDE 105 MMOL/L (99-107); GLUCOSE 82 MG/DL (70-104); POTASSIUM 3.4 MMOL/L (3.5-5.1); SODIUM 141 MMOL/L (135-145); TOTAL CARBON DIOXIDE 24.6 MMOL/L (24-32); TOTAL PROTEIN 5.8 G/DL (6.4-8.2); eGFR 74 ML/MIN
[2021-02-24] MEDS: docusate sod 100mg capsule PO SCH ×2 (08:00→20:20)
[2021-02-24] MEDS: K and/or MAG REPLACEMENT MC SCH ×2 (08:00→20:00)
[2021-02-24] MEDS: levoTHYROXINE 25mcg tablet PO SCH (08:07)
[2021-02-24] MEDS: atorvastatin 20mg tablet PO SCH (08:07)
[2021-02-24] MEDS: pantoprazole 40mg Tablet.DR PO SCH (08:07)
[2021-02-24] MEDS: enoxaparin 40mg/0.4ml syringe SQ SCH (08:08)
[2021-02-24 11:00] VITALS: BP 119/65
--- NOTE | 2021-02-24 11:44 | NUR ---
Reassessment: Pt s/p laparoscopic right hemicolectomy for obstructing neoplasm per MD note. Pt advanced to full liquid diet 02/23, able to consume 50-75%. No abd pain or nausea/vomiting reported. LBM 02/23, noted to be watery stools. Continue to advance diet as tolerated. Will continue to monitor. Recommendations: 1) Advance to low residue diet as medically indicated 2) routine bowel care 3) Weekly scaled weights Addendum: 02/24/21 at [address] Amended: Links added.
[2021-02-24] MEDS ORDERED: magnesium Cl slow-release 64mg tablet PO PRN (16:40)
[2021-02-24] MEDS ORDERED: potassium Cl 20 mEq SR tablet PO PRN (16:40)
[2021-02-24] MEDS ORDERED: magnesium 4gm in 100ml NS 100 ML IV PRN (16:40)
[2021-02-24] MEDS ORDERED: potassium Cl 40MEQ/1/2NS 520ml 520 ML IV PRN (16:40)
[2021-02-24] MEDS: potassium Cl 20 mEq SR tablet PO PRN ×2 (17:35→22:32)
[2021-02-24 17:45] LABS: MAGNESIUM 1.8 MG/DL (1.5-2.4)
--- NOTE | 2021-02-24 18:22 | NUR ---
Patient in room TRAC[facility] 352. I have received report from DINAH Thorne and had the opportunity to ask questions and assume patient care.
--- NOTE | 2021-02-24 18:59 | NUR ---
Problems reprioritized. Patient report given, questions answered & plan of care reviewed with Joanna NIX.
[2021-02-24 19:00] VITALS: BP 132/66
[2021-02-24] MEDS: temazepam 15mg capsule PO SCH (20:19)
[2021-02-25] VITALS: BP 111/62
[2021-02-25] MEDS: acetaminophen 325mg tablet PO SCH ×2 (02:00→07:39)
[2021-02-25] MEDS: potassium Cl 20 mEq SR tablet PO PRN (02:48)
--- NOTE | 2021-02-25 06:18 | NUR ---
Problems reprioritized. Patient report given, questions answered & plan of care reviewed with DINAH Valle.
[2021-02-25 06:55] LABS: BASOPHILS # (AUTO) 0.1 X10'3 (0-0.2); BASOPHILS % (AUTO) 0.4 % (0-1); EOSINOPHILS # (AUTO) 0.6 X10'3 (0-0.9); EOSINOPHILS % (AUTO) 4.6 % (0-6); HEMATOCRIT 42.4 % (42.0-52.0); HEMOGLOBIN 14.2 g/dl (14.0-17.9); LYMPHOCYTES # (AUTO) 1.4 X10'3 (1.1-4.8); LYMPHOCYTES % (AUTO) 10.6 % (21-51); MEAN CORPUSCULAR HEMOGLOBIN 31.4 PG (27.0-31.0); MEAN CORPUSCULAR HGB CONC 33.6 g/dL (33.0-36.5); MEAN CORPUSCULAR VOLUME 93.4 FL (78-98); MEAN PLATELET VOLUME 7.7 FL (7.4-10.4); MONOCYTES # (AUTO) 1.5 X10'3 (0-0.9); MONOCYTES % (AUTO) 11.4 % (2-12); NEUTROPHILS # (AUTO) 9.9 X10'3 (1.8-7.7); PLATELET COUNT 416 X10'3 (140-440); RED BLOOD COUNT 4.53 X10'6 (4.70-6.10); RED CELL DISTRIBUTION WIDTH 13.7 % (11.5-14.5); WHITE BLOOD COUNT 13.5 X10'3 (4.5-11.0)
[2021-02-25 07:09] LABS: GLUCOSE 97 MG/DL (70-104)
[2021-02-25 07:10] VITALS: BP 127/71
[2021-02-25 07:10] LABS: ALANINE AMINOTRANSFERASE 68 U/L (12-78); ALBUMIN 2.4 G/DL (3.4-5.0); ALBUMIN/GLOBULIN RATIO 0.6 (1.1-1.5); ALKALINE PHOSPHATASE 189 IU/L (46-116); ANION GAP 10 (8-16); ASPARTATE AMINO TRANSFERASE 66 U/L (10-37); BILIRUBIN,TOTAL 0.5 MG/DL (0.1-1.0); BLOOD UREA NITROGEN 4 MG/DL (7-18); BUN/CREATININE RATIO 4.3 (5.4-32.0); CHLORIDE 105 MMOL/L (99-107); CREATININE 0.92 MG/DL (0.60-1.10); POTASSIUM 3.8 MMOL/L (3.5-5.1); SODIUM 140 MMOL/L (135-145); TOTAL CARBON DIOXIDE 25.3 MMOL/L (24-32); TOTAL PROTEIN 6.3 G/DL (6.4-8.2); eGFR 82 ML/MIN
[2021-02-25] MEDS: atorvastatin 20mg tablet PO SCH (07:34)
[2021-02-25] MEDS: pantoprazole 40mg Tablet.DR PO SCH (07:34)
[2021-02-25] MEDS: levoTHYROXINE 25mcg tablet PO SCH (07:34)
[2021-02-25] MEDS: enoxaparin 40mg/0.4ml syringe SQ SCH (07:35)
[2021-02-25] MEDS: K and/or MAG REPLACEMENT MC SCH (07:39)
[2021-02-25] MEDS: docusate sod 100mg capsule PO SCH (07:39)
--- NOTE | 2021-02-25 10:47 | NUR ---
PAGER ID: [phone] MESSAGE: [phone] Justin Culver: Batsheva note from yesterday said "home in AM"...are you okay with me discharging this patient now? thanks, gage [phone]
--- NOTE | 2021-02-25 12:03 | NUR ---
Patient stable and appropriate for discharge home with . All belongings taken from room. No new medications ordered. All discharge instructions and education given and reviewed with patient, all questions answered. His already scheduled a follow up appointment with Surgeon while I was in room, and was calling to make a f/u with PCP as well.
--- NOTE | 2021-02-25 13:00 | NUR ---
Spoke with daughter Ashley. Answered all questions.
== END 2021-02-25 11:50 | disposition home or self-care (01) | DRG 330 ==
LOC: ER 09:50 → ED HOLD 13:45 → EDBEDREQTM 22:36 → EDBEDREQSVC 22:36 → ORTHO 4S 23:29 → SUR 3N 02-19 23:00
PROVIDERS: ADMIT Family Medicine; ATTEND Family Medicine
PROC: BW211ZZ Computerized Tomography (CT Scan) of Abdomen and Pelvis using Low Osmolar Contrast (ICD-10-PCS; 2021-02-14)
PROC: 0DBC8ZX Excision of Ileocecal Valve, Via Natural or Artificial Opening Endoscopic, Diagnostic (ICD-10-PCS; 2021-02-15)
PROC: 8E0W4CZ Robotic Assisted Procedure of Trunk Region, Percutaneous Endoscopic Approach (ICD-10-PCS; 2021-02-19)
PROC: 4A1BXSH Monitoring of Gastrointestinal Vascular Perfusion using Indocyanine Green Dye, External Approach (ICD-10-PCS; 2021-02-19)
PROC: 0DTF4ZZ Resection of Right Large Intestine, Percutaneous Endoscopic Approach (ICD-10-PCS; principal; 2021-02-19 13:49)
DX: C18.2 Malignant neoplasm of ascending colon (principal); K56.600 Partial intestinal obstruction, unspecified as to cause; K56.7 Ileus, unspecified; G89.29 Other chronic pain; M54.9 Dorsalgia, unspecified; E87.6 Hypokalemia; K57.30 Diverticulosis of large intestine without perforation or abscess without bleeding; E03.9 Hypothyroidism, unspecified; Z20.822 Contact with and (suspected) exposure to COVID-19; D72.829 Elevated white blood cell count, unspecified; R93.3 Abnormal findings on diagnostic imaging of other parts of digestive tract; E78.5 Hyperlipidemia, unspecified; Z79.899 Other long term (current) drug therapy; Z80.0 Family history of malignant neoplasm of digestive organs; Z80.42 Family history of malignant neoplasm of prostate; Z87.19 Personal history of other diseases of the digestive system; Z87.891 Personal history of nicotine dependence; Z98.1 Arthrodesis status; Z88.5 Allergy status to narcotic agent
CPT/HCPCS: 36415; 45380; 45381; 71045; 74018; 74170; 74177; 74183; 80048; 80053; 80061; 81003; 82378; 82948; 83036; 83690; 83735; 84100; 84443; 85007; 85025; 85610; 85730; 86885; 86900; 86901; 87081; 87635; 88309; 93005; 99152; 99153; 99285; A4215; A4618; A4620; A9575; C1758; C9113; G0378; J0694; J1100; J1170; J1644; J1650; J1885; J2001; J2175; J2250; J2405; J2704; J2710; J3010; J3480; J3490; J7030; J7040; J7120; Q9967